=== PATIENT | male | born 1940 | race Caucasian/White ===

== ENCOUNTER 2020-01-17 08:35 | Outpatient (CLI) | payer OTHER ==
[~2020-01-17 08:35] MED LIST: DICLOFENAC POTA50 MG PO
== END 2020-01-17 08:48 | disposition home or self-care (01) ==
LOC: TOM 08:35
PROVIDERS: ATTEND Urology
DX: R31.0 Gross hematuria (principal); N40.1 Benign prostatic hyperplasia with lower urinary tract symptoms; R33.8 Other retention of urine
CPT/HCPCS: 74178; Q9965

== ENCOUNTER → 2020-01-27 11:11 | Outpatient (CLI) | payer OTHER ==
[~2020-01-27] VITALS: Ht 170.2 cm; Wt 71.7 kg
[~2020-01-27 11:11] MED LIST changes: +ALBUTE; +AMILODIPINE PO; +ASPIR PO; +FINAST PO; +LOSART PO; +SIMBICORT; +SINGULAIR10 MG PO; +SPIRIVA; +TAMS0.4C PO
== END | disposition home or self-care (01) ==
LOC: EDSTATUS 08:00 → LAB 11:11 → EDSTATUS 02-03 08:00 → SURH 02-03 08:00 → CIR.AMB 02-03 08:00
PROVIDERS: ATTEND Urology
DX: U07.1 COVID-19 (principal); R31.0 Gross hematuria; N40.1 Benign prostatic hyperplasia with lower urinary tract symptoms; R33.8 Other retention of urine; Z01.812 Encounter for preprocedural laboratory examination; Z01.811 Encounter for preprocedural respiratory examination

== ENCOUNTER 2020-06-17 15:15 | Inpatient (IN) | payer OTHER ==
[~2020-06-17] VITALS: Ht 170.2 cm; Wt 65.8 kg
[2020-06-17] MEDS ORDERED: IRBESARTAN-HCT1 EAC1 PO (15:27)
[2020-06-17] MEDS ORDERED: NORVASC2.5 M1 PO (15:28)
[2020-06-17] MEDS ORDERED: LEVOFLOXACIN5 ML PO (15:28)
[2020-06-17] MEDS ORDERED: PYRIDIUM100 M1 PO (15:29)
[2020-06-23] MEDS ORDERED: SPIRIVA RESPIMAT4 G1 (11:26)
== END 2020-06-24 10:22 | disposition home or self-care (01) | DRG 714 ==
LOC: ER 15:15 → SURG 16:42 → SEC-K 16:42 → SURG 06-19 13:18
PROVIDERS: ADMIT Urology; ATTEND Urology
PROC: 0VT08ZZ Resection of Prostate, Via Natural or Artificial Opening Endoscopic (ICD-10-PCS; principal; 2020-06-22 13:00)
DX: N40.1 Benign prostatic hyperplasia with lower urinary tract symptoms (principal); R33.8 Other retention of urine; R31.0 Gross hematuria; J44.9 Chronic obstructive pulmonary disease, unspecified; K59.09 Other constipation; I25.10 Atherosclerotic heart disease of native coronary artery without angina pectoris; Z86.16 Personal history of COVID-19; Z20.822 Contact with and (suspected) exposure to COVID-19

== ENCOUNTER 2024-05-15 11:43 | Emergency (ER) | payer OTHER ==
[~2024-05-15] VITALS: Ht 170.2 cm; Wt 69.9 kg
[~2024-05-15 11:43] MED LIST changes: +IRBESARTAN-HCT1 EAC1 PO; +LEVOFLOXACIN5 ML PO; +NORVASC2.5 M1 PO; +PYRIDIUM100 M1 PO; +SPIRIVA RESPIMAT4 G1
[2024-05-15] MEDS ORDERED: FINASTERIDE5 MG (12:26)
[2024-05-15 12:27] VITALS: BP 121/70; O2SAT 97
[2024-05-15] MEDS ORDERED: SIMVASTATIN10 MG (12:27)
[2024-05-15] MEDS ORDERED: METHYLPREDNISOLONE SOD SUCC 125 MG VIAL IV STA (13:40)
[2024-05-15] MEDS ORDERED: CEFTRIAXONE SODIUM 1,000 MG VIAL IV STA (13:41)
[2024-05-15] MEDS ORDERED: LEVALBUTEROL HCL 1.25 MG/3 ML SOLUTION IH SCH (13:45)
[2024-05-15] MEDS ORDERED: BUDESONIDE 0.5 MG/2 ML AMPUL.NEB IH SCH (13:45)
[2024-05-15] MEDS ORDERED: CEFTRIAXONE SODIUM 1,000 MG VIAL ONE (14:06)
[2024-05-15] MEDS ORDERED: METHYLPREDNISOLONE SOD SUCC 125 MG VIAL ONE (14:06)
[2024-05-15 14:56] LABS: HEMATOCRIT 40.4 % (39.0-48.0); HEMOGLOBIN 13.2 g/dL (13-16.00); MEAN CELL VOLUME 90.3 fL (80.0-100.00); MEAN CORPUSCULAR HEMOGLOBIN 29.6 pg (27.00-32.0); MEAN CORPUSCULAR HGB CONC 32.7 g/dl (32.0-36.0); PLATELET COUNT 283 K/uL (150-450); RED BLOOD COUNT 4.47 M/uL (4.00-6.00); RED CELL DISTRIBUTION WIDTH 13.3 % (11.5-14.5)
[2024-05-15 15:25] LABS: CALCIUM 9.4 mg/dL (8.5-10.1); CREATININE SERUM 0.93 mg/dL (0.70-1.30); GFR 77.59; POTASSIUM 4.93 mEq/L (3.5-5.1)
[2024-05-15] MEDS ORDERED: LEVALBUTEROL HCL 1.25 MG/3 ML SOLUTION IH ONE (15:40)
[2024-05-15] MEDS ORDERED: BUDESONIDE 0.5 MG/2 ML AMPUL.NEB IH ONE (15:41)
== END 2024-05-15 16:32 | disposition home or self-care (01) ==
LOC: ER 11:45
PROVIDERS: General Practice
DX: R05.8 Other specified cough (principal); Z20.822 Contact with and (suspected) exposure to COVID-19
CPT/HCPCS: 36415; 71046; 96365; 99283; J0696; J3490

== ENCOUNTER 2024-07-26 14:36 | Emergency (ER) | payer OTHER ==
[~2024-07-26] VITALS: Ht 167.6 cm; Wt 68.0 kg
[~2024-07-26 14:36] MED LIST changes: +FINASTERIDE5 MG; +SIMVASTATIN10 MG
[2024-07-26] MEDS ORDERED: MAGNESIUM SULFATE IN WATER 2 GM/50 ML PIGGYBAG IV ONE (16:15)
[2024-07-26] MEDS ORDERED: METHYLPREDNISOLONE SOD SUCC 125 MG VIAL IV ONE (16:15)
[2024-07-26] MEDS ORDERED: IPRATROPIUM BROMIDE 0.5 MG/2.5 ML AMPUL.NEB IH SCH (16:15)
[2024-07-26] MEDS ORDERED: LEVALBUTEROL HCL 1.25 MG/3 ML SOLUTION IH SCH (16:15)
[2024-07-26 17:06] LABS: ABG PH 7.462 (7.35-7.45); ABG PO2 77.1 mmHg (80-100); ABG pCO2 33.7 mmHg (35-45); BASE EXCESS 0.5 mmol/l; BICARBONATE 23.6 mmol/l (23-25); SaO2 96.1 %; Tco2 24.6 mmol/l
[2024-07-26] MEDS ORDERED: METHYLPREDNISOLONE SOD SUCC 125 MG VIAL ONE (17:16)
[2024-07-26] MEDS ORDERED: MAGNESIUM SULFATE 50% 1,000 MG/2 ML VIAL ONE (17:16)
[2024-07-26 17:18] LABS: HEMATOCRIT 37.5 % (39.0-48.0); HEMOGLOBIN 12.2 g/dL (13-16.00); MEAN CELL VOLUME 87.8 fL (80.0-100.00); MEAN CORPUSCULAR HEMOGLOBIN 28.7 pg (27.00-32.0); MEAN CORPUSCULAR HGB CONC 32.7 g/dl (32.0-36.0); PLATELET COUNT 257 K/uL (150-450); RED BLOOD COUNT 4.27 M/uL (4.00-6.00); RED CELL DISTRIBUTION WIDTH 13.9 % (11.5-14.5)
[2024-07-26 17:43] LABS: INR 1.15; PARTIAL THROMBOPLASTIN TIME 26.2 SECONDS (22.0-34.0); PROTHROMBIN TIME 12.4 SECONDS (9.0-11.5)
[2024-07-26 17:48] LABS: ALBUMIN 3.6 gm/dL (3.4-5.0); BILIRUBIN TOTAL 0.49 mg/dL (0.3-1.2); CALCIUM 8.7 mg/dL (8.5-10.1); CREATININE SERUM 0.87 mg/dL (0.70-1.30); GFR 83.8; GLOBULINA 3.8 G/DL (2.4-3.5); POTASSIUM 3.78 mEq/L (3.5-5.1); TOTAL PROTEIN 7.4 gm/dL (6.4-8.2)
[2024-07-26 19:05] LABS: PH,URINE 7.5 (5.0-8.0); URINE APPEARANCE Clear; URINE BILIRRUBIN Negative (NEGATIVE); URINE BLOOD Negative; URINE COLOR Yellow; URINE GLUCOSE Negative (NEGATIVE); URINE KETONE Negative (NEGATIVE); URINE LEUKOCYTE Negative; URINE NITRATE Negative; URINE PROTEIN Trace (NEGATIVE); URINE UROBILINOGEN 0.2 E.U./dl
[2024-07-26 19:08] LABS: URINE BACTERIA 6.1 uL (0.0-1933); URINE RBC 4.4 uL (0.0-20.8); URINE WBC 4.1 uL (0.0-23.2)
[2024-07-26 19:13] LABS: URINE EPITHELIAL CELLS 0.6 uL (0.0-38.8)
[2024-07-26] MEDS ORDERED: AZITHROMYCIN500 MG PO (19:29)
[2024-07-26] MEDS ORDERED: LEVALBUTER0.63 MG/3 IH (19:29)
[2024-07-26] MEDS ORDERED: BENZONATATE200 M1 PO (19:29)
[2024-07-26] MEDS ORDERED: MEDROLPACK PO (19:29)
[2024-07-26] MEDS ORDERED: PEPCID AC20 MG PO (19:29)
[2024-07-26 21:38] LABS: allen test SATISFACTORY; o2 21 %; puncture site RADIAL LEFT
== END 2024-07-26 21:14 | disposition home or self-care (01) ==
LOC: ER 14:36
PROVIDERS: General Practice
DX: R53.81 Other malaise (principal); J40 Bronchitis, not specified as acute or chronic; R06.02 Shortness of breath
CPT/HCPCS: 36415; 71045; 82803; 93005; 96365; 99283; J3475; J3490